=== PATIENT | female | born 1985 | race Caucasian/White ===

== ENCOUNTER 2018-09-30 08:22 | Inpatient (IN) | payer OTHER ==
[~2018-09-30] VITALS: Ht 152.4 cm; Wt 70.0 kg
[2018-10-06] MEDS ORDERED: [UNRECOGNIZED DRUG - OTHER] (18:49)
[2018-10-06] MEDS ORDERED: PREN1TAB60 PO (18:49)
[2018-10-06] MEDS ORDERED: ACYC-113 PO (18:49)
[2018-10-06 18:59] VITALS: BP 115/64
[2018-10-06] MEDS ORDERED: OXYTOCIN 30U/ 0.9% NaCL 500ML 500 ML IV PRN (19:47)
[2018-10-06] MEDS ORDERED: D5%-LACTATED RINGERS 1,000 ML IV SCH (19:47)
[2018-10-06] MEDS ORDERED: OXYTOCIN 30U/ 0.9% NaCL 500ML 500 ML IV ONE (19:47)
[2018-10-06] MEDS ORDERED: NEWBORN KIT ONE (19:51)
[2018-10-06] MEDS ORDERED: MISOPROSTOL 25 MCG TABLET ONE (19:51)
[2018-10-06] MEDS ORDERED: OXYTOCIN 30U/ 0.9% NaCL 500ML 500 ML ONE (19:51)
[2018-10-06] MEDS: LACTATED RINGERS 1,000 ML IV SCH (19:55)
[2018-10-06] MEDS: MISOPROSTOL 25 MCG TABLET VG PRN (20:00)
[2018-10-06] MEDS ORDERED: CALCIUM CARBONATE 500 MG TAB.CHEW PO PRN (20:00)
[2018-10-06] MEDS ORDERED: TERBUTALINE 1 MG/ML, 1ML IVPush PRN (20:00)
[2018-10-06] MEDS ORDERED: FENTANYL PF 100 MCG/2ML IVPush PRN (20:00)
[2018-10-06] MEDS ORDERED: ONDANSETRON 2MG/ML, 2ML IVPush PRN (20:00)
[2018-10-06 20:24] LABS: BASOPHILS # (AUTO) 0.06 x10^3/uL (0-0.1); BASOPHILS % (AUTO) 1 % (0-1); EOSINOPHILS # (AUTO) 0.08 x10^3/uL (0-0.4); EOSINOPHILS % (AUTO) 1 % (1-7); LYMPHOCYTES # (AUTO) 1.05 x10^3/uL (1-3.4); LYMPHOCYTES % (AUTO) 13 % (22-44); MD NO; MEAN CORPUSCULAR HEMOGLOBIN 31.3 pg (27.0-34.8); MEAN CORPUSCULAR HGB CONC 34.7 g/dL (32.4-35.8); MEAN CORPUSCULAR VOLUME 90.1 fL (80-100); MEAN PLATELET VOLUME 8.4 fL (7.4-10.4); MONOCYTES # (AUTO) 0.69 x10^3/uL (0.2-0.8); MONOCYTES % (AUTO) 8 % (2-9); NEUTROPHILS # (AUTO) 6.35 x10^3/uL (1.8-6.8); NEUTROPHILS % (AUTO) 77 % (42-75); PLATELET COUNT 241 x10^3/uL (130-400); RED BLOOD COUNT 3.81 x10^6/uL (3.82-5.3); RED CELL DISTRIBUTION WIDTH 12.5 % (9.6-15.2)
[2018-10-07] MEDS ORDERED: MISOPROSTOL 25 MCG TABLET ONE (00:41)
[2018-10-07] MEDS: MISOPROSTOL 25 MCG TABLET VG PRN (00:55)
[2018-10-07] MEDS: LACTATED RINGERS 1,000 ML IV SCH ×3 (04:17→22:44)
[2018-10-07] MEDS ORDERED: FENTANYL PF 100 MCG/2ML ONE ×2 (18:26→19:48)
[2018-10-07] MEDS: FENTANYL PF 100 MCG/2ML IV PRN ×2 (18:32→19:54)
[2018-10-07] MEDS ORDERED: FENTANYL/BUPIV./NS/PF 250 ML EPIDCONT SCH (20:24)
[2018-10-07] MEDS ORDERED: FENTANYL PF 500 MCG, BUPIVACAINE/PF 0.5%, 30ML 62.5 ML in SODIUM CHLORIDE 0.9% 177.5 ML EPIDCONT SCH (21:00)
[2018-10-08] MEDS: LACTATED RINGERS 1,000 ML IV SCH ×6 (06:38→23:54)
[2018-10-08 07:20] VITALS: BP 118/68
[2018-10-08] MEDS ORDERED: FENTANYL/BUPIV./NS/PF 250 ML EPIDCONT SCH (11:39)
[2018-10-08] MEDS ORDERED: BUPIVACAINE 0.25% ONE (11:42)
[2018-10-08] MEDS ORDERED: NALOXONE 0.4 MG/ML, 1ML IVPush PRN (12:00)
[2018-10-08] MEDS ORDERED: EPHEDRINE 50 MG/ML, 1ML IVPush PRN ×2 (12:00→23:00)
[2018-10-08] MEDS ORDERED: LACTATED RINGERS 1,000 ML IVBOLUS PRN (12:00)
[2018-10-08] MEDS ORDERED: TERBUTALINE 1 MG/ML, 1ML ONE (15:38)
[2018-10-08] MEDS ORDERED: TERBUTALINE 1 MG/ML, 1ML IV ONE (16:00)
[2018-10-08] MEDS ORDERED: SODIUM CITRATE/CITRIC ACID 30 ML UDC ONE (21:46)
[2018-10-08] MEDS ORDERED: METOCLOPRAMIDE 5 MG/ML, 2ML ONE (21:46)
[2018-10-08] MEDS ORDERED: EPHEDRINE 50 MG/ML, 1ML ONE (22:34)
[2018-10-08] MEDS ORDERED: PROPOFOL 10 MG/ML, 20ML ONE (22:34)
[2018-10-08] MEDS ORDERED: FENTANYL PF 100 MCG/2ML ONE ×3 (22:34→23:25)
[2018-10-08] MEDS ORDERED: ONDANSETRON 2MG/ML, 2ML ONE (22:34)
[2018-10-08] MEDS ORDERED: DEXAMETHASONE 4 MG/ML, 1ML ONE (22:34)
[2018-10-08] MEDS ORDERED: OXYTOCIN 10 UNITS/ML, 1ML ONE (22:34)
[2018-10-08] MEDS ORDERED: CEFAZOLIN 1,000 MG ONE (22:34)
[2018-10-08] MEDS ORDERED: SUCCINYLCHOLINE 20 MG/ML, 10ML ONE (22:34)
[2018-10-08] MEDS ORDERED: KETOROLAC 30 MG/1 ML ONE (22:34)
[2018-10-08] MEDS ORDERED: PHENYLEPHRINE 10 MG/ML ONE (22:34)
[2018-10-08] MEDS ORDERED: NITROGLYCERIN 5 MG/ML, 10ML ONE (22:57)
[2018-10-08] MEDS ORDERED: OXYcodone 5 MG/5 ML ORAL.SOL UDC PO PRN (23:00)
[2018-10-08] MEDS ORDERED: LABETALOL 5MG/ML, 20ML IV PRN (23:00)
[2018-10-08] MEDS ORDERED: PROMETHAZINE 25 MG/ML, 1ML IV PRN (23:00)
[2018-10-08] MEDS ORDERED: MIDAZOLAM 1 MG/ML, 2ML IV PRN (23:00)
[2018-10-08] MEDS ORDERED: ALBUTEROL/IPRATROPIUM 2.5MG/0.5MG, 3 ML NPPB PRN (23:00)
[2018-10-08] MEDS ORDERED: ONDANSETRON 2MG/ML, 2ML IVPush PRN (23:00)
[2018-10-08] MEDS ORDERED: MEPERIDINE/PF 25MG/0.5ML IVPush PRN (23:00)
[2018-10-08] MEDS ORDERED: HYDROcodone/APAP 7.5-325MG/15ML UDC PO PRN (23:00)
[2018-10-08] MEDS ORDERED: HYDROmorphone 2 MG/ML, 1ML IVPush PRN (23:00)
[2018-10-08] MEDS ORDERED: FENTANYL PF 100 MCG/2ML IV PRN (23:00)
[2018-10-08] MEDS ORDERED: HYDROmorphone 2 MG/ML, 1ML ONE (23:31)
[2018-10-08] MEDS: OXYTOCIN 30U/ 0.9% NaCL 500ML 500 ML IV SCH (23:54)
[2018-10-09] MEDS ORDERED: MEASLES,MUMPS&RUBELLA VACC/PF 0.5 ML SQ-VACC PRN
[2018-10-09] MEDS ORDERED: HYDROcodone/APAP 5/325 TABLET PO PRN ×2
[2018-10-09] MEDS ORDERED: RHOGAM FROM BLOOD BANK 1 NOTE EA IM/IV ONE
[2018-10-09] MEDS ORDERED: MISOPROSTOL 200 MCG TABLET PR PRN
[2018-10-09] MEDS ORDERED: CALCIUM CARBONATE 500 MG TAB.CHEW PO PRN
[2018-10-09] MEDS ORDERED: METOCLOPRAMIDE 5 MG/ML, 2ML IV PRN
[2018-10-09] MEDS ORDERED: SIMETHICONE 80 MG CHEW TAB PO PRN
[2018-10-09] MEDS ORDERED: BUTORPHANOL 1 MG/ML, 1ML IV PRN
[2018-10-09] MEDS ORDERED: ONDANSETRON 2MG/ML, 2ML IV PRN
[2018-10-09] MEDS: LACTATED RINGERS 1,000 ML IV SCH ×4 (00:23→19:54)
[2018-10-09 01:18] VITALS: BP 119/73
[2018-10-09 04:50] VITALS: BP 113/74
[2018-10-09] MEDS: KETOROLAC 30 MG/1 ML IV PRN ×4 (06:16→23:43)
[2018-10-09 07:10] VITALS: BP 113/67
[2018-10-09 07:18] LABS: MEAN CORPUSCULAR HEMOGLOBIN 31.5 pg (27.0-34.8); MEAN CORPUSCULAR HGB CONC 34.8 g/dL (32.4-35.8); MEAN CORPUSCULAR VOLUME 90.6 fL (80-100); MEAN PLATELET VOLUME 8.3 fL (7.4-10.4); PLATELET COUNT 184 x10^3/uL (130-400); RED BLOOD COUNT 2.87 x10^6/uL (3.82-5.3); RED CELL DISTRIBUTION WIDTH 12.8 % (9.6-15.2)
[2018-10-09 07:38] LABS: MD YES
[2018-10-09 07:39] LABS: BAND#(MANUAL) 0.67 x10^3/uL; BANDS%(MANUAL) 4 % (0-7); LYMPH#(MANUAL) 0.67 x10^3/uL (1-3.4); LYMPHS% (MANUAL) 4 % (22-44); MONOS#(MANUAL) 0.17 x10^3/uL (0.3-2.7); MONOS% (MANUAL) 1 % (2-9); SEG#(MANUAL) 15.29 x10^3/uL (1.8-6.8); SEGS% (MANUAL) 91 % (42-75)
[2018-10-09 07:40] LABS: <PLATELET ESTIMATE> ADEQUATE; <PLT MORPHOLOGY> NORMAL PLT MORPH; <RBC MORPHOLOGY> NORMAL
[2018-10-09] MEDS: PRENATAL VIT/IRON/FA 1 EACH TABLET PO SCH (09:00)
[2018-10-09] MEDS: OXYTOCIN 30U/ 0.9% NaCL 500ML 500 ML IV SCH ×2 (09:54→19:54)
[2018-10-09] MEDS: DOCUSATE 100 MG CAPSULE PO PRN (12:20)
[2018-10-09 12:45] VITALS: BP 102/63
[2018-10-09 16:35] VITALS: BP 107/66
[2018-10-09 21:00] VITALS: BP 109/68
[2018-10-09] MEDS: ACETAMINOPHEN 325 MG TABLET PO PRN (23:43)
[2018-10-10] MEDS: OXYTOCIN 30U/ 0.9% NaCL 500ML 500 ML IV SCH ×2 (05:54→15:57)
[2018-10-10] MEDS: LACTATED RINGERS 1,000 ML IV SCH ×2 (05:54→15:57)
[2018-10-10] MEDS: ACETAMINOPHEN 325 MG TABLET PO PRN ×3 (07:28→20:08)
[2018-10-10] MEDS: DOCUSATE 100 MG CAPSULE PO PRN ×2 (07:28→20:08)
[2018-10-10] MEDS: IBUPROFEN 600 MG TABLET PO PRN ×3 (07:28→20:00)
[2018-10-10 07:30] VITALS: BP 105/67
[2018-10-10] MEDS: PRENATAL VIT/IRON/FA 1 EACH TABLET PO SCH (07:50)
[2018-10-10] MEDS: FERROUS SULFATE 325 MG TABLET PO SCH ×2 (10:55→17:44)
[2018-10-10] MEDS: ASCORBIC ACID 500 MG TABLET PO SCH ×2 (10:56→17:44)
[2018-10-10] MEDS ORDERED: FERROUS SULFATE 325 MG TABLET PO SCH (17:00)
[2018-10-10] MEDS ORDERED: ASCORBIC ACID 500 MG TABLET PO SCH (17:00)
[2018-10-10 20:00] VITALS: BP 128/79
[2018-10-11 00:30] VITALS: BP 104/62
[2018-10-11] MEDS: ACETAMINOPHEN 325 MG TABLET PO PRN ×4 (01:53→21:15)
[2018-10-11] MEDS: OXYTOCIN 30U/ 0.9% NaCL 500ML 500 ML IV SCH ×3 (07:54→21:54)
[2018-10-11] MEDS: LACTATED RINGERS 1,000 ML IV SCH ×3 (07:54→21:54)
[2018-10-11 08:10] VITALS: BP 120/71
[2018-10-11] MEDS: DOCUSATE 100 MG CAPSULE PO PRN ×2 (08:11→21:15)
[2018-10-11] MEDS: FERROUS SULFATE 325 MG TABLET PO SCH ×2 (08:11→17:47)
[2018-10-11] MEDS: ASCORBIC ACID 500 MG TABLET PO SCH ×2 (08:12→17:47)
[2018-10-11] MEDS: IBUPROFEN 600 MG TABLET PO PRN ×3 (08:12→21:15)
[2018-10-11] MEDS: PRENATAL VIT/IRON/FA 1 EACH TABLET PO SCH (08:14)
[2018-10-11 19:30] VITALS: BP 121/71
[2018-10-12] MEDS: ACETAMINOPHEN 325 MG TABLET PO PRN (03:35)
[2018-10-12] MEDS: IBUPROFEN 600 MG TABLET PO PRN (03:35)
[2018-10-12 07:14] VITALS: BP 114/76
[2018-10-12] MEDS ORDERED: HYDR-3240 PO (07:36)
[2018-10-12] MEDS ORDERED: IBUP-1222 PO (07:37)
[2018-10-12] MEDS: ASCORBIC ACID 500 MG TABLET PO SCH (08:06)
[2018-10-12] MEDS: DOCUSATE 100 MG CAPSULE PO PRN (08:06)
[2018-10-12] MEDS: FERROUS SULFATE 325 MG TABLET PO SCH (08:06)
[2018-10-12] MEDS: PRENATAL VIT/IRON/FA 1 EACH TABLET PO SCH (08:49)
== END 2018-10-12 09:10 | disposition home or self-care (01) | DRG 788 ==
LOC: UNDOADMIN 08:22 → LDIP 08:22 → 2NW 10-09 01:00
PROVIDERS: ADMIT Obstetrics & Gynecology; ATTEND Obstetrics & Gynecology
PROC: 10D00Z1 Extraction of Products of Conception, Low, Open Approach (ICD-10-PCS; principal; 2018-10-09)
DX: O36.5990 Maternal care for other known or suspected poor fetal growth, unspecified trimester, not applicable or unspecified (principal); O62.1 Secondary uterine inertia; O69.81X0 Labor and delivery complicated by cord around neck, without compression, not applicable or unspecified; O76 Abnormality in fetal heart rate and rhythm complicating labor and delivery; Z37.0 Single live birth; O64.0XX0 Obstructed labor due to incomplete rotation of fetal head, not applicable or unspecified; Z88.5 Allergy status to narcotic agent; Z3A.38 38 weeks gestation of pregnancy
CPT/HCPCS: 36415; J7121; 82803; 85025; 86850; 86900; 88307; G0378; J0690; J1100; J1170; J1885; J2405; J2704; J3010; J3490; J0330; J2370; J2590; J3105; J7050; J7120